=== PATIENT | male | born 1990 | race Caucasian/White ===

== ENCOUNTER 2022-10-12 18:52 | Emergency (ER) | payer OTHER ==
[~2022-10-12] VITALS: Ht 175.3 cm; Wt 138.2 kg
[2022-10-12] MEDS ORDERED: ISENTRESS400 MG PO (19:28)
[2022-10-12] MEDS ORDERED: COMBIVIR 1501 COMBO PO (19:28)
[2022-10-12 19:44] LABS: BASO% 0.5 % (0-3); EOS% 3.6 % (0-8); HEMATOCRIT 43.4 % (39.0-50.0); HEMOGLOBIN 12.8 g/dl (14.0-18.0); IMMATURE GRANULOCYTES 0.1 % (0.0-5.0); LYMPH% 18.6 % (15-41); MEAN CELL VOLUME 68.7 fL CALC (80.0-100.0); MEAN CORPUSCULAR HGB 20.3 pG CALC (26.0-32.0); MEAN CORPUSCULAR HGB CONC 29.5 g/dL CAL (32.0-36.0); MONO% 7.1 % (2-13); NEUT# 5.69 thou/uL (1.82-7.42); NEUT% 70.1 % (42-76); RED BLOOD COUNT 6.32 mill/uL (4.70-6.10); RED CELL DISTRI WIDTH 15.3 % (11.5-15.5)
[2022-10-12 19:57] LABS: ALBUMIN 4.6 g/dL (3.2-5.0); ALKALINE PHOSPHATASE 53 u/l (38-126); BILIRUBIN, TOTAL 0.4 mg/dL (0.2-1.3); BUN 13 mg/dL (9-20); CREATININE 0.8 mg/dL (0.7-1.3); SGOT/AST 40 u/l (17-59); TOTAL PROTEIN 7.8 g/dL (6.3-8.2)
[2022-10-12 20:05] VITALS: BP 133/70
== END 2022-10-12 20:05 | disposition home or self-care (01) | DRG 605 ==
LOC: ED 18:52
PROVIDERS: Family Medicine
DX: S61.212A Laceration without foreign body of right middle finger without damage to nail, initial encounter (principal); W45.8XXA Other foreign body or object entering through skin, initial encounter; Y93.89 Activity, other specified; Y99.0 Civilian activity done for income or pay; Z77.21 Contact with and (suspected) exposure to potentially hazardous body fluids